=== PATIENT | male | born 2000 | race African-American/Black ===

== ENCOUNTER 2021-03-30 18:56 | Emergency (ER) | payer OTHER ==
[~2021-03-30] VITALS: Ht 182.9 cm; Wt 88.2 kg
[2021-03-30] MEDS ORDERED: IBUPROFEN 600 MG TABLET. PO ONE (19:45)
[2021-03-30 19:51] VITALS: BP 173/68
--- NOTE | 2021-03-30 20:02 | RAD ---
Exam: Left knee 4 views INDICATION: Left knee pain TECHNIQUE: Frontal, lateral, oblique and sunrise views of the left knee Comparisons: None FINDINGS: Bone mineralization is normal. No acute or healed fractures. Soft tissues are unremarkable. Joint spa nicole are well-maintained. IMPRESSION: No acute osseous abnormality. Electronically signed by: Fracisco Martinez MD (03/30/2021 7:59 PM) MILO
--- NOTE | 2021-03-30 20:33 | PHYS DOC ---
Past History Past Medical History: No Pertinent History (CARMEN PARK APRN) Past Surgical History: No Surgical History (ACRMEN PARK APRN) Alcohol Use: Rarely (CARMEN PARK APRN) General Adult EDM: Chief Complaint: KNEE INJURY HPI: HPI: Patient is a 20-year-old male who presents with left knee pain. Patient denies injury. Patient states the pain started yesterday when he was getting out of the shower. Patient has full range of motion and able to ambulate on his own. Pain is worse with ambulation. Patient states "I feel like I have to keep my leg straight". Patient denies taking anything at home for pain. Denies health history. (CARMEN PARK APRN) Review of Systems: Review of Systems: Constitutional: Denies fever or chills Eyes: Denies change in visual acuity HENT: Denies nasal congestion or sore throat Respiratory: Denies cough or shortness of breath Cardiovascular: Denies chest pain or edema GI: Denies abdominal pain, nausea, vomiting, bloody stools or diarrhea : Denies dysuria Musculoskeletal: Reports left knee pain Integument: Denies rash Neurologic: Denies headache, focal weakness or sensory changes Endocrine: Denies polyuria or polydipsia Lymphatic: Denies swollen glands Psychiatric: Denies depression or anxiety (CARMEN PARK APRN) Current Medications: Current Meds: Current Medications Medications (Trade) Dose Ordered Sig/Leanna Start Time Stop Time Status Last Admin Dose Admin Ibuprofen (Motrin) 600 mg 1X ONCE 03/30/21 19:45 03/30/21 19:46 DC 03/30/21 20:02 600 MG (CARMEN PARK APRN) Allergies: Allergies: Allergies Coded Allergies Type Severity Reaction Last Updated Verified No Known Drug Allergies 03/30/21 No (CARMEN PARK APRN) Physical Exam: PE: Constitutional: Well developed, well nourished, no acute distress, non-toxic appearance. [] HENT: Normocephalic, atraumatic, bilateral external ears normal, oropharynx moist, no oral exudates, nose normal. [] Eyes: PERRLA, EOMI, conjunctiva normal, no discharge. [] Neck: Normal range of motion, no tenderness, supple, no stridor. [] Cardiovascular:Heart rate regular rhythm, no murmur [] Lungs & Thorax: Bilateral breath sounds clear to auscultation [] Abdomen: Bowel sounds normal, soft, no tenderness, no masses, no pulsatile masses. [] Skin: Warm, dry, no erythema, no rash. [] Back: No tenderness, no CVA tenderness. [] Extremities: No tenderness, no cyanosis, no clubbing, ROM intact, no edema. [] Neurologic: Alert and oriented X 3, normal motor function, normal sensory function, no focal deficits noted. [] Psychologic: Affect normal, judgement normal, mood normal. [] (CARMEN PARK APRN) Current Patient Data: Vital Signs: Vital Signs Date Time Temp Pulse Resp B/P (MAP) Pulse Ox O2 Delivery O2 Flow Rate FiO2 03/30/21 19:51 98.9 85 20 173/68 (103) 98 Room Air (CARMEN PARK APRN) EKG: EKG: [] (CARMEN PARK APRN) Radiology/Procedures: Radiology/Procedures: [] (CARMEN PARK APRN) Heart Score: C/O Chest Pain: No Risk Factors: Risk Factors: DM, Current or recent (<one month) smoker, HTN, HLP, family history of CAD, obesity. Risk Scores: Score 0 - 3: 2.5% MACE over next 6 weeks - Discharge Home Score 4 - 6: 20.3% MACE over next 6 weeks - Admit for Clinical Observation Score 7 - 10: 72.7% MACE over next 6 weeks - Early Invasive Strategies (CARMEN PARK APRN) Course & Med Decision Making: Course & Med Decision Making Pertinent Labs and Imaging studies reviewed. (See chart for details) [] 20-year-old male presents with left knee pain. No known injury. Knee x-ray is negative for any acute abnormalities. Patient given 600 mg of ibuprofen in the emergency room. Rice instructions given. Patient given [facility] and instructed to follow-up. (CARMEN PARK APRN) Course & Med Decision Making Did not see or evaluate patient. Agree with SPORTS BOOK SERVER's work-up and disposition per note. (YOLIE MCCAULEY MD) Dragon Disclaimer: Dragon Disclaimer: This electronic medical record was generated, in whole or in part, using a voice recognition dictation system. (CARMEN PARK APRN) Departure Departure: Impression: Primary Impression: Knee pain, left Qualified Codes: M25.562 - Pain in left knee Disposition: HOME / SELF CARE / HOMELESS Condition: STABLE Referrals: PCP,NO (PCP) Patient Instructions: Knee Pain, [id number] Additional Instructions: You are seen the emergency room for left knee pain. Your x-ray was negative for any acute fractures. It is important that you rest, use ice to your knee, and elevate to help with pain and swelling. If pain continues please follow-up with Ortho. I have provided her with those contact information for follow-up. Can also take ibuprofen and Tylenol at home for discomfort. [facility] [address] [facility] [address] EMERGENCY DEPARTMENT GENERAL DISCHARGE INSTRUCTIONS Thank you for coming to [facility] (ED) today and trusting us with you care. We trust that you had a positivie experience in our Emergency Department. If you wish to speak to the department management, you may call the director at [phone]. YOUR FOLLOW UP INSTRUCTIONS ARE FOLLOWS: 1. Do you have a private Doctor? If you do not have a private doctor, please ask for a resource list of physicians or clinics that may be able to assist you with follow up care. 2. The Emergency Physician has interpreted your x-rays. The X-Ray specialist will also review them. If there is a change in the findings, you will be notified in 48 hours when at all possible. 3. A lab test or culture has been done, your results will be reviewed and you will be notified if you need a change in treatment. ADDITIONAL INSTRUCTIONS AND INFORMATION: 1. Your care today has been supervised by a physician who is specially trained in emergency care. Many problems require more than one evaluation for a complete diagnosis and treatment. We recommend that you schedule your follow up appointment as recommended to ensure complete treatment of you illness or injury. If you are unable to obtain follow up care and continue to have a problem, or if your condition worsens, we recommend that you return to the ED. 2. We are not able to safely determine your condition over the phone nor are we able to give sound medical advice over the phone. For these safety reasons, if you call for medical advice we will ask you to come to the ED for further evaluation. 3. If you have any questions regarding these discharge instructions please call the ED at [phone]. SAFETY INFORMATION: In the interest of safety, wellness, and injury prevention; we encourage you to wear your sealbelt, if you smoke; quite smoking, and we encourage family to use a protective helmet for bicycling and other sporting events that present an increased risk for head injury. IF YOUR SYMPTOMS WORSEN OR NEW SYMPTOMS DEVELOP, OR YOU HAVE CONCERNS ABOUT YOUR CONDITION; OR IF YOUR CONDITION WORSENS WHILE YOU ARE WAITING FOR YOUR FOLLOW UP APPOINTMENT; EITHER CONTACT YOUR PRIMARY CARE DOCTOR, THE PHYSICIAN WHOSE NAME AND NUMBER YOU WERE GIVEN, OR RETURN TO THE ED IMMEDIATELY. CARMEN PARK APRN Mar 30, 2021 20:33 YOLIE MCCAULEY MD Mar 31, 2021 00:37
== END 2021-03-30 20:50 | disposition home or self-care (01) ==
LOC: ER 18:56
DX: M25.562 Pain in left knee (principal)
CPT/HCPCS: 73564; 99283

== ENCOUNTER 2021-08-22 18:18 | Emergency (ER) | payer OTHER ==
[~2021-08-22] VITALS: Ht 182.9 cm; Wt 91.7 kg
--- NOTE | 2021-08-22 19:17 | PHYS DOC ---
Past History Past Medical History: No Pertinent History Past Surgical History: No Surgical History Alcohol Use: Rarely General Adult HPI: HPI: "Has a nasal congestion and feels like I cannot breathe seems of gotten worse last couple days. Seen my care since we moved here from [place] have a lot of nasal congestion episodes. 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 Patient up-to-date with vaccinations including Covid. Has not gotten flu vaccination for this season. No recent travel. No specific ill contacts. Normally healthy. Has had some seasonal complaints especially since arriving from [place]. Patient only follows at [facility] Review of Systems: Review of Systems: Constitutional: Denies fever or chills Eyes: Denies change in visual acuity HENT: Complains of nasal congestion . Respiratory: Denies cough or shortness of breath Cardiovascular: Denies chest pain or edema GI: Denies abdominal pain, nausea, vomiting, bloody stools or diarrhea : Denies dysuria Musculoskeletal: Denies back pain or joint pain Integument: Denies rash Neurologic: Denies headache, focal weakness or sensory changes Endocrine: Denies polyuria or polydipsia Lymphatic: Denies swollen glands Psychiatric: Denies depression or anxiety Family History: Family History: Noncontributory to presentation Current Medications: Current Meds: See nursing for home meds Allergies: Allergies: Allergies Coded Allergies Type Severity Reaction Last Updated Verified No Known Drug Allergies 03/30/21 No Physical Exam: PE: Constitutional: Well developed, well nourished mild distress, non-toxic appearance. [] HENT: Normocephalic, atraumatic, bilateral external ears normal, oropharynx moist, no oral exudates, nose swollen turbinates, rhinorrhea, postnasal drainage. [] Eyes: PERRLA, EOMI, conjunctiva normal, no discharge. [] Neck: Normal range of motion, no tenderness, supple, no stridor. [] Cardiovascular:Heart rate regular rhythm, no murmur [] Lungs & Thorax: Bilateral breath sounds are apex with few scattered wheezes auscultation [] Abdomen: Bowel sounds normal, soft, no tenderness, no masses, no pulsatile masses. [] Skin: Warm, dry, no erythema, no rash. [] Back: No tenderness, no CVA tenderness. [] Extremities: No tenderness, no cyanosis, no clubbing, ROM intact, no edema. [] Neurologic: Alert and oriented X 3, normal motor function, normal sensory function, no focal deficits noted. [] Psychologic: Affect n anxiousl, judgement normal, mood normal. [] EKG: EKG: [] Radiology/Procedures: Radiology/Procedures: [] Heart Score: C/O Chest Pain: No Risk Factors: Risk Factors: DM, Current or recent (<one month) smoker, HTN, HLP, family history of CAD, obesity. Risk Scores: Score 0 - 3: 2.5% MACE over next 6 weeks - Discharge Home Score 4 - 6: 20.3% MACE over next 6 weeks - Admit for Clinical Observation Score 7 - 10: 72.7% MACE over next 6 weeks - Early Invasive Strategies Course & Med Decision Making: Course & Med Decision Making Pertinent Labs and Imaging studies reviewed. (See chart for details) Patient to use [id number] Flonase 2 sprays every night. Use normal saline rinses 4 times a day. Patient will be given 1 double shot of steroids. Patient follow-up primary care. Patient take Tylenol and ibuprofen for pain. Return if any concerns. Impression: 1. Viral syndrome versus allergic rhinitis [] Dragon Disclaimer: Dragon Disclaimer: This electronic medical record was generated, in whole or in part, using a voice recognition dictation system. Departure Departure: Referrals: PCP,NO (PCP) Hugo Disclaimer This chart was dictated in whole or in part using Voice Recognition software in a busy, high-work load, and often noisy Emergency Department environment. It may contain unintended and wholly unrecognized errors or omissions. TIMUR MARTÍNEZ MD Aug 22, 2021 19:16
[2021-08-22] MEDS ORDERED: methylPREDNISolone ACETATE 40 MG/ML VIAL. IM ONE (19:45)
[2021-08-22] MEDS ORDERED: diphenhydrAMINE HCL 25 MG CAPSULE PO ONE (19:45)
[2021-08-22 20:21] VITALS: BP 146/77
== END 2021-08-22 20:21 | disposition home or self-care (01) ==
LOC: ER 18:18
DX: R09.81 Nasal congestion (principal)
CPT/HCPCS: 96372; 99283; J1030; Q0163